=== PATIENT | male | born 2000 | race Asian ===

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

== ENCOUNTER 2020-01-21 08:37 | Inpatient (IN) | payer OTHER ==
[2020-01-21] MEDS ORDERED: METOCLOPRAMIDE HCL INJECTION 10 MG/2 ML VIAL IVPB ONE (08:39)
[2020-01-21] MEDS ORDERED: ACETAMINOPHEN 1000 MG/100 ML VIAL (NON FORMULARY) IVPB ONE (08:39)
[2020-01-21] MEDS ORDERED: FAMOTIDINE 20 MG/50 ML IVPB 20 MG/50 ML MG IVPB ONE ×2 (08:39→10:00)
[2020-01-21] MEDS ORDERED: SODIUM CHLORIDE 1,000 ML IV STA (08:39)
--- NOTE | 2020-01-21 08:45 | PDOC ---
Rapid Medical Evaluation Chief Complaint: Pain Time Seen by Provider: 01/21/20 08:39 Medical Evaluation: Allergies Allergy/AdvReac Type Severity Reaction Status Date / Time brompheniramine AdvReac Verified 01/21/20 08:39 [From Dimetapp Cold-Allergy (PE)] phenylephrine AdvReac Verified 01/21/20 08:39 [From Dimetapp Cold-Allergy (PE)] 01/21/20 08:41 I have performed a brief in-person evaluation of this patient. The patient presents with a chief complaint of:epigastric and periumbilical pain since yesterday which patient describes as burning pain. report nausea but denies vomiting. Denies fever, chills, diarrhea, constipation. Denies urinary symptoms. Denies recent travel Pertinent physical exam findings: moderate TTP to periumbical area with mild guarding. no rebound. neg billy sign I have ordered the following: CBC, CMP, UA, Ucx, lipase, IVF. pepcid, Tylenol The patient will proceed to the ED for further evaluation. Discharge Disposition - Diagnosis Abdominal pain Qualifiers: Abdominal location: periumbilical Qualified Code(s): R10.33 - Periumbilical pain - Discharge Dispostion Condition at time of disposition: Stable - Referrals - Patient Instructions - Post Discharge Activity
--- NOTE | 2020-01-21 08:59 | PDOC ---
History of Present Illness <Vivian Shen - Last Filed: 01/21/20 14:48> - General History Source: Patient Exam Limitations: No Limitations - History of Present Illness Initial Comments: 01/21/20 08:58 19 year old male with no pmhx presenting with RLQ abdominal pain x 1 day. Pt states that he noticed periumbicial abdominal pain last night that has now moved to his RLQ. Pt describes the pain and sharp and constant, not associated with food, vomiting or diarrhea. However pt states he is currently nauseous and has decreased appetitie. No fever, chills, sick contacts, recent travel, abnormal diet or ETOH. Pt otherwise denies: syncope, lightheadedness, dizziness, headaches, neck pain, chest pain, shortness of breath, palpitations, back pain, vomiting, diarrhea, constipation. Last meal: Midnight today. 01/21/20 09:05 <Al Gonzalez - Last Filed: 01/21/20 17:21> - General Chief Complaint: Pain Stated Complaint: ABD PAIN Time Seen by Provider: 01/21/20 08:39 Past History <Vivian Shen - Last Filed: 01/21/20 14:48> - Medical History CVA: No COPD: No - Psycho-Social/Smoking History Smoking History: Never smoked Information on smoking cessation initiated: No - Substance Abuse Hx (Audit-C & DAST Scrn) How often the patient has a drink containing alcohol: Never Score: In Men: 4 or > Positive; In Women: 3 or > Positive: 0 Screen Result (Pos requires Nsg. Audit-10AR): Negative <Al Gonzalez - Last Filed: 01/21/20 17:21> - Medical History Allergies/Adverse Reactions: Allergies Allergy/AdvReac Type Severity Reaction Status Date / Time brompheniramine AdvReac Verified 01/21/20 08:39 [From Dimetapp Cold-Allergy (PE)] phenylephrine AdvReac Verified 01/21/20 08:39 [From Dimetapp Cold-Allergy (PE)] Home Medications: Ambulatory Orders NK [No Known Home Medication] 01/21/20 Review of Systems - Review of Systems Constitutional: No: Chills, Fever HEENTM: No: Throat Pain Respiratory: No: Shortness of Breath Cardiac (ROS): No: Chest Pain ABD/GI: Yes: Symptoms Reported (RLQ pain), Nausea, Poor Appetite. No: Diarrhea, Difficulty Swallowing, Vomiting, Abdominal cramping : No: Dysuria, Discharge Musculoskeletal: No: Back Pain Integumentary: No: Bruising, Change in Color, Erythema, Rash Neurological: No: Headache, Numbness, Paresthesia, Tremors Endocrine: No: Excessive Sweating, Intolerance to Cold, Intolerance to Heat, Increased Hunger <CarlosAl - Last Filed: 01/21/20 17:21> *Physical Exam - Vital Signs Last Vital Signs Temp Pulse Resp BP Pulse Ox 98.1 F 82 16 115/56 L 96 01/21/20 08:39 01/21/20 08:39 01/21/20 08:39 01/21/20 08:39 01/21/20 08:39 <Vivian Shen - Last Filed: 01/21/20 14:48> - Vital Signs Last Vital Signs Temp Pulse Resp BP Pulse Ox 98.1 F 82 16 115/56 L 96 01/21/20 08:39 01/21/20 08:39 01/21/20 08:39 01/21/20 08:39 01/21/20 08:39 - Physical Exam 01/21/20 09:08 Gen: AAOx 3, no acute distress, comfortable, no signs of respiratory distress HENT: atraumatic, normocephalic with no laceration or contusion. Nasal mucosa without erythema. Oropharynx without erythema or exudates. Mucous membranes moist. EYES: PERRL, EOM intact, conjunctiva pink NECK: supple; trachea midline; no JVD, no lymphadenopathy, or thyromegaly CV: RRR no murmurs, gallops, or rubs. CHEST: CTA b/l no wheezing, rales or rhonchi ABD: +BS/ND. TTP in RLQ with voluntary guarding, +psoas sing; rest of abdomen soft, no rebound, no guarding EXTREMITY: no cyanosis or erythema. 2+ dorsalis pedis, posterior tibial, and radial pulse. No pedal edema; no calf swelling or tenderness SKIN: no rash, warm and dry, no diaphoresis HEME: no purpura or ecchymosis NEURO: normal speech, CN II-XII intact, sensation intact, normal gait, no cerebellar deficits MS: 5/5 strength in all extremities, FROM intact in all extremities. <Al Gonzalez - Last Filed: 01/21/20 17:21> ED Treatment Course - LABORATORY CBC & Chemistry Diagram: 01/21/20 09:50 01/21/20 09:50 - ADDITIONAL ORDERS Additional order review: Laboratory Results 01/21/20 09:50 Sodium 138 Potassium 3.9 Chloride 104 Carbon Dioxide 26 Anion Gap 9 BUN 10.9 Creatinine 0.9 Est GFR (CKD-EPI)AfAm 143.00 Est GFR (CKD-EPI)NonAf 123.38 Random Glucose 134 H Calcium 9.6 Total Bilirubin 0.6 AST 17 ALT 39 Alkaline Phosphatase 114 Total Protein 8.2 Albumin 4.4 Lipase 48 L 01/21/20 09:50 RBC 5.23 MCV 82.6 MCHC 33.2 RDW 12.6 MPV 10.4 Neutrophils % 89.3 H D Lymphocytes % 5.9 L D Monocytes % 4.5 Eosinophils % 0.0 D Basophils % 0.3 - Medications Given in the ED: ED Medications Discontinued Medications Generic Name Dose Route Start Last Admin Trade Name Micah PRN Reason Stop Dose Admin Acetaminophen 1,000 mg 01/21/20 08:39 01/21/20 10:08 Ofirmev Injection - IVPB 01/21/20 08:40 1,000 mg ONCE ONE Administration Famotidine/Sodium Chloride 20 mg in 50 mls @ 100 mls/hr 01/21/20 08:39 01/21/20 10:08 Pepcid 20 Mg Premixed Ivpb - IVPB 01/21/20 09:08 100 mls/hr ONCE ONE Administration Sodium Chloride 1,000 mls @ 1,000 mls/hr 01/21/20 08:39 01/21/20 10:07 Normal Saline - IV 01/21/20 09:38 1,000 mls/hr ASDIR STA Administration Metoclopramide HCl 10 mg 01/21/20 08:39 01/21/20 10:08 Reglan Injection - IVPB 01/21/20 08:40 10 mg ONCE ONE Administration <Vivian Shen - Last Filed: 01/21/20 14:48> - LABORATORY CBC & Chemistry Diagram: 01/21/20 09:50 01/21/20 09:50 <Al Gonzalez - Last Filed: 01/21/20 17:21> Medical Decision Making - Medical Decision Making The patient was seen and evaluated in conjunction with midlevel provider under my direct supervision, ancillary studies were reviewed. I agree with the plan as outlined withSAMEERA Gonzalez. HPI, workup/dispo as outlined. VS reviewed, wnl Patient with right lower quadrant tenderness, labs and lites were reviewed, he does have leukocytosis 16.4K There is a high suspicion for appendicitis, CT abdomen pelvis ordered to rule out appendicitis, p.o. contrast given due to his thin habitus analgesia IVF reassess 01/21/20 12:16 ct with acute appendicitis iv ceftriaxone and flagyl for infection, uncomplicated. admitted to medicine for management, surg cs with Dr Gan. 01/21/20 14:48 <Vivian Shen - Last Filed: 01/21/20 14:48> - Medical Decision Making 01/21/20 09:09 18 year old male presenting with RLQ pain VSS Concern for appendicitis CBC, CMP, lipase, UA, UC IVF, tylenol, H2 hanna, Reglan Will reassess after meds and labs Laboratory Tests 01/21/20 09:50 WBC 16.4 H Hgb 14.3 Hct 43.2 Neutrophils % 89.3 H D Labs significant for increased WBC. Rest of labs noncontributory. Pt pending CT with IV and PO contrast. COVID testing, T&S ordered anticipate admission for appendicitis. CT shows appendicitis. Surgeon real estate transaction manager contacted, pt admitted to medicine and given dose IV ceftriaxone and flagy as well as made NPO. Dr Raza of medicine and Dr Gan of surgery to manage further care 01/21/20 13:28 01/21/20 17:21 <Al Gonzalez - Last Filed: 01/21/20 17:21> Discharge <Vivian Shen - Last Filed: 01/21/20 14:48> - Discharge Information Problems reviewed: Yes - Admission Yes <Al Gonzalez - Last Filed: 01/21/20 17:21> - Discharge Information Clinical Impression/Diagnosis: Abdominal pain Qualifiers: Abdominal location: periumbilical Qualified Code(s): R10.33 - Periumbilical pain Condition: Stable
[2020-01-21 09:20] VITALS: BMI 27.8
[2020-01-21] MEDS ORDERED: ACETAMINOPHEN INJECTION 100 ML IVPB ONE (10:00)
[2020-01-21] MEDS ORDERED: METOCLOPRAMIDE HCL INJECTION 10 MG/2 ML VIAL ONE (10:00)
[2020-01-21 10:12] LABS: BASO % 0.3 % (0-2.0); HEMATOCRIT 43.2 % (35.4-49); HEMOGLOBIN 14.3 GM/dL (11.7-16.9); LYMPH % 5.9 % (8-40); MCH 27.4 pg (25.7-33.7); MCHC 33.2 g/dl (32.0-35.9); MEAN CELL VOLUME 82.6 fl (80-96); MEAN PLT VOLUME 10.4 fl (7.5-11.1); MONO % 4.5 % (3.8-10.2); NEUT % 89.3 % (42.8-82.8); PLATELET COUNT 186 K/MM3 (134-434); RBC 5.23 M/mm3 (4.00-5.60); RDW 12.6 % (11.9-15.9); WHITE BLOOD COUNT 16.4 K/mm3 (4.0-10.0)
[2020-01-21 10:38] LABS: ALBUMIN 4.4 g/dl (3.4-5.0); BILIRUBIN,TOTAL 0.6 mg/dL (0.2-1); BLOOD UREA NITROGEN 10.9 mg/dL (7-18); CALCIUM 9.6 mg/dL (8.5-10.1); CREATININE 0.9 mg/dL (0.55-1.3); POTASSIUM 3.9 mmol/L (3.5-5.1); TOT PROT 8.2 g/dl (6.4-8.2)
[2020-01-21] MEDS ORDERED: PIPERACILLIN/TAZOB 3.375 GM 3.375 GM in DEXTROSE 5%-WATER - 50 ML IVPB ONE (12:49)
[2020-01-21] MEDS ORDERED: CEFTRIAXONE 1,000 MG in DEXTROSE 5%-WATER - 50 ML IVPB ONE (13:58)
[2020-01-21] MEDS ORDERED: ONDANSETRON 4 MG/2 ML VIAL IVPUSH PRN (14:10)
[2020-01-21] MEDS ORDERED: ACETAMINOPHEN 1000 MG/100 ML VIAL (NON FORMULARY) IVPB PRN (14:12)
--- NOTE | 2020-01-21 14:24 | HP ---
CHIEF COMPLAINT: abdominal pain PCP: HISTORY OF PRESENT ILLNESS:19 yo M w/pmh of hypospadias (sx repair at 1y/o & 5y/o) was brought in by mother for concern of abdominal pain. He described his pain as an 8/10 around the periumbilical region. The pain with nausea started around midnight and remained constant until coming to the hospital. He denies, vomiting, diarrhea, fever and chills. No history of similar abdominal pain. Never had abdominal surgery before. No hx of bleeding disorders in family. Had been social distancing, but last Tuesday wore a mask and went to a BBQ with his friends. Denies known COVID contacts. ER course was notable for: (1) Tmax 103F, HR 121, WBC 16.4(neutrophil 89%) (2) CXR: "bibasilar infiltrates" (3) CT A/P: distended appendix(1cm diameter), associated mild concentric wall thickening, intraluminal appendicoliths. No definite soft tissue stranding (4) jennifer, coleman, elis, NS x1L, ofirmev, zosyn Recent Travel: denies PAST MEDICAL HISTORY: denies PAST SURGICAL HISTORY: hypospadias (sx repair at 1y/o & 5y/o) Social History: Smoking:denies Alcohol:denies Drugs: denies Allergies brompheniramine [From Dimetapp Cold-Allergy (PE)] Adverse Reaction (Verified 01/21/20 08:39) phenylephrine [From Dimetapp Cold-Allergy (PE)] Adverse Reaction (Verified 01/21/20 08:39) HOME MEDICATIONS: Home Medications Medication Instructions Recorded Oseltamivir Phosphate [Tamiflu -] 75 mg PO BID #9 capsule 08/22/17 REVIEW OF SYSTEMS CONSTITUTIONAL: Absent: fever, chills, diaphoresis, generalized weakness, malaise, loss of appetite, weight change HEENT: Absent: rhinorrhea, nasal congestion, throat pain, throat swelling, difficulty swallowing, mouth swelling, ear pain, eye pain, visual changes CARDIOVASCULAR: Absent: chest pain, syncope, palpitations, irregular heart rate, lightheadedness, peripheral edema RESPIRATORY: Absent: cough, shortness of breath, dyspnea with exertion, orthopnea, wheezing, stridor, hemoptysis GASTROINTESTINAL: Positive for abdominal pain and nausea Absent: , abdominal distension, vomiting, diarrhea, constipation, melena, hematochezia GENITOURINARY: Absent: dysuria, frequency, urgency, hesitancy, hematuria, flank pain, genital pain MUSCULOSKELETAL: Absent: myalgia, arthralgia, joint swelling, back pain, neck pain SKIN: Absent: rash, itching, pallor HEMATOLOGIC/IMMUNOLOGIC: Absent: easy bleeding, easy bruising, lymphadenopathy, frequent infections ENDOCRINE: Absent: unexplained weight gain, unexplained weight loss, heat intolerance, cold intolerance NEUROLOGIC: Absent: headache, focal weakness or paresthesias, dizziness, unsteady gait, seizure, mental status changes, bladder or bowel incontinence PSYCHIATRIC: Absent: anxiety, depression, suicidal or homicidal ideation, hallucinations. PHYSICAL EXAMINATION GENERAL: NAD. Calm-appearing HEAD: NC/AT. EYES: sclera anicteric, conjunctiva clear. EARS, NOSE, THROAT: oropharynx without exudates. Moist mucous membranes. NECK: Normal range of motion, supple without lymphadenopathy, JVD, or masses. LUNGS: Breath sounds equal, clear to auscultation bilaterally. No wheezes, and no crackles. No accessory muscle use. HEART: Regular rate and rhythm, normal S1 and S2 without murmur, rub or gallop. ABDOMEN: Soft. Tenderness to palpation of McBurney's point. Neg rebound, neg Rovsing's, neg Obturator sign. MUSCULOSKELETAL: No bony deformities or tenderness. NEUROLOGICAL: A&Ox3. Normal speech. Vital Signs - 24 hr 01/21/20 08:39 Temperature 98.1 F Pulse Rate 82 Respiratory 16 Rate Blood Pressure 115/56 L O2 Sat by Pulse 96 Oximetry (%) . Laboratory Results - last 24 hr 01/21/20 01/21/20 09:50 09:50 WBC 16.4 H RBC 5.23 Hgb 14.3 Hct 43.2 MCV 82.6 MCH 27.4 MCHC 33.2 RDW 12.6 Plt Count 186 MPV 10.4 Absolute Neuts (auto) 14.7 H Neutrophils % 89.3 H D Lymphocytes % 5.9 L D Monocytes % 4.5 Eosinophils % 0.0 D Basophils % 0.3 Nucleated RBC % 0 Sodium 138 Potassium 3.9 Chloride 104 Carbon Dioxide 26 Anion Gap 9 BUN 10.9 Creatinine 0.9 Est GFR (CKD-EPI)AfAm 143.00 Est GFR (CKD-EPI)NonAf 123.38 Random Glucose 134 H Calcium 9.6 Total Bilirubin 0.6 AST 17 ALT 39 Alkaline Phosphatase 114 Total Protein 8.2 Albumin 4.4 Lipase 48 L ASSESSMENT/PLAN: 9M w/ pmh of hypospadias(sx repair at 1y/o, 5y/o) brought in by mother for concern of periumbilical abdominal pain w/a nausea. Patient presented septic(Tmax 103F, HR 121, WBC 16.4) with CT showing a dilated appendix. Admitted for possible early appendicitis. Periumbilical abd pain --possibly 2/2 earlier appendicitis Sepsis --likely 2/2 appendicitis - Tmax 103F, HR 121, WBC 16.4(neutrophil 89%) - CT A/P: distended appendix (1cm diameter), associated mild concentric wall thickening, intraluminal appendicoliths. No definite soft tissue stranding - IVF - NPO - zofran PRN - abx regimen: zosyn d1 - surgical consult (Lazaro): recs pending planning to see pt and maybe OR pending neg COVID R/o COVID --pt is w/o respiratory symptoms - CXR: "bibasilar infiltrates" - fu COVID FEN - NPO - D5NS @100 DVT PPX - SQH Visit type - Emergency Visit Emergency Visit: Yes ED Registration Date: 01/21/20 Care time: The patient presented to the Emergency Department on the above date and was hospitalized for further evaluation of their emergent condition. - New Patient This patient is new to me today: Yes Date on this admission: 01/21/20 - Critical Care Critical Care patient: No ATTENDING PHYSICIAN STATEMENT I saw and evaluated the patient. I reviewed the resident's note and discussed the case with the resident. I agree with the resident's findings and plan as documented. SUBJECTIVE: OBJECTIVE: ASSESSMENT AND PLAN:
--- NOTE | 2020-01-21 14:54 | HP ---
CHIEF COMPLAINT: mid-abd pain w/a nausea PCP: Jojo HISTORY OF PRESENT ILLNESS: 19M w/ pmh of hypospadias(sx repair at 1y/o, 5y/o) brought in by mother for concern of abdominal pain. Had 8 of 10 intensity, points at periumbilical region, w/a nausea starting at at ~11pm on 01/20/20. Went to bed, but no impro vement in AM. Mother was concerned due to lack of improvement. Pt has nausea. Denies loss of appetite, vomiting, diarrhea, fever, chills. No h/o similiar abd pain. Never had abd surgery before. No hx of bleeding disorders in family. Had been social distancing, but last Tuesday wore a mask to get food with friends. Denies SOB, fever, or known COVID contacts. ER course was notable for: (1) Tmax 103F, HR 121, WBC 16.4(neutrophil 89%) (2) CXR: "bibasilar infiltrates" (3) CT A/P: distended appendix(1cm diameter), associated mild concentric wall thickening, intraluminal appendicoliths. No definite soft tissue stranding (4) zofran, relgan, pepcid, NS x1L, ofirmev, zosyn Recent Travel: PAST MEDICAL HISTORY: as above PAST SURGICAL HISTORY: hypospadias Social History: Smoking: denies Alcohol: denies Drugs: denies Allergies brompheniramine [From Dimetapp Cold-Allergy (PE)] Adverse Reaction (Verified 01/21/20 08:39) phenylephrine [From Dimetapp Cold-Allergy (PE)] Adverse Reaction (Verified 01/21/20 08:39) HOME MEDICATIONS: Home Medications Medication Instructions Recorded Oseltamivir Phosphate [Tamiflu -] 75 mg PO BID #9 capsule 08/22/17 REVIEW OF SYSTEMS CONSTITUTIONAL: Absent: fever, chills, diaphoresis, generalized weakness, malaise, loss of appetite, weight change HEENT: Absent: rhinorrhea, nasal congestion, throat pain, throat swelling, difficulty swallowing, mouth swelling, ear pain, eye pain, visual changes CARDIOVASCULAR: Absent: chest pain, syncope, palpitations, irregular heart rate, lightheadedness, peripheral edema RESPIRATORY: Absent: cough, shortness of breath, dyspnea with exertion, orthopnea, wheezing, stridor, hemoptysis GASTROINTESTINAL: abd pain, nausea Absent: abdominal distension, vomiting, diarrhea, constipation, melena, hematoch ezia GENITOURINARY: Absent: dysuria, frequency, urgency, hesitancy, hematuria, flank pain, genital pain MUSCULOSKELETAL: Absent: myalgia, arthralgia, joint swelling, back pain, neck pain SKIN: Absent: rash, itching, pallor HEMATOLOGIC/IMMUNOLOGIC: Absent: easy bleeding, easy bruising, lymphadenopathy, frequent infections ENDOCRINE: Absent: unexplained weight gain, unexplained weight loss, heat intolerance, cold intolerance NEUROLOGIC: Absent: headache, focal weakness or paresthesias, dizziness, unsteady gait, seizure, mental status changes, bladder or bowel incontinence PSYCHIATRIC: Absent: anxiety, depression, suicidal or homicidal ideation, hallucinations. PHYSICAL EXAMINATION Vital Signs - 24 hr 01/21/20 08:39 Temperature 98.1 F Pulse Rate 82 Respiratory 16 Rate Blood Pressure 115/56 L O2 Sat by Pulse 96 Oximetry (%) GENERAL: NAD. Calm-appearing HEAD: NC/AT. EYES: sclera anicteric, conjunctiva clear. EARS, NOSE, THROAT: oropharynx without exudates. Moist mucous membranes. NECK: Normal range of motion, supple without lymphadenopathy, JVD, or masses. LUNGS: Breath sounds equal, clear to auscultation bilaterally. No wheezes, and no crackles. No accessory muscle use. HEART: Regular rate and rhythm, normal S1 and S2 without murmur, rub or gallop. ABDOMEN: Soft. Tenderness to palpation of McBurney's point. Neg rebound, neg Rovsing's, neg Psoas Sign, neg Obturator sign. MUSCULOSKELETAL: No bony deformities or tenderness. NEUROLOGICAL: A&Ox3. Normal speech. Laboratory Results - last 24 hr 01/21/20 01/21/20 09:50 09:50 WBC 16.4 H RBC 5.23 Hgb 14.3 Hct 43.2 MCV 82.6 MCH 27.4 MCHC 33.2 RDW 12.6 Plt Count 186 MPV 10.4 Absolute Neuts (auto) 14.7 H Neutrophils % 89.3 H D Lymphocytes % 5.9 L D Monocytes % 4.5 Eosinophils % 0.0 D Basophils % 0.3 Nucleated RBC % 0 Sodium 138 Potassium 3.9 Chloride 104 Carbon Dioxide 26 Anion Gap 9 BUN 10.9 Creatinine 0.9 Est GFR (CKD-EPI)AfAm 143.00 Est GFR (CKD-EPI)NonAf 123.38 Random Glucose 134 H Calcium 9.6 Total Bilirubin 0.6 AST 17 ALT 39 Alkaline Phosphatase 114 Total Protein 8.2 Albumin 4.4 Lipase 48 L ASSESSMENT/PLAN: 19M w/ pmh of hypospadias(sx repair at 1y/o, 5y/o) brought in by mother for concern of periumbilical abdominal pain w/a nausea. Patient presented septic(Tmax 103F, HR 121, WBC 16.4) with CT showing a dilated appendix. Admitted for possible early appendicitis. #periumbilical abd pain --possibly 2/2 earlier appendicitis #sepsis --likely 2/2 appendicitis > Tmax 103F, HR 121, WBC 16.4(neutrophil 89%) > CT A/P: distended appendix(1cm diameter), associated mild concentric wall thickening, intraluminal appendicoliths. No definite soft tissue stranding - mIVF - NPO - zofran PRN - abx regimen: --zosyn d1 - surgical consult(Lazaro): --recs pending --planning to see pt and maybe OR pending neg COVID #r/o COVID --pt is w/o respiratory symptoms > CXR: "bibasilar infiltrates" - fu COVID FEN - NPO - D5NS @100 DVT PPX - SQH Visit type - Emergency Visit Emergency Visit: Yes ED Registration Date: 01/21/20 Care time: The patient presented to the Emergency Department on the above date and was hospitalized for further evaluation of their emergent condition. - New Patient This patient is new to me today: Yes Date on this admission: 01/21/20 - Critical Care Critical Care patient: No ATTENDING PHYSICIAN STATEMENT I saw and evaluated the patient. I reviewed the resident's note and discussed the case with the resident. I agree with the resident's findings and plan as documented. SUBJECTIVE: OBJECTIVE: ASSESSMENT AND PLAN:
--- NOTE | 2020-01-21 15:12 | PN ---
Teaching Attending Note Name of Resident: Homero Millerung ATTENDING PHYSICIAN STATEMENT I saw and evaluated the patient. I reviewed the resident's note and discussed the case with the resident. I agree with the resident's findings and plan as documented. SUBJECTIVE: This is a 19 y/o M who presents with generalized abdominal pain and nausea x 1 day. Patient denies any history of similar symptoms in the past. In the Ed patient was noted to CT scan finding with 1cm fluid filled distention in the appendix. ROS otherwise negative. PMH/PSH/Allergies as per resident note OBJECTIVE: Vital Signs Period Temp Pulse Resp BP Sys/Campbell Pulse Ox Last 24 Hr 98.1 F 82 16 115/56 96 GENERAL: Awake, alert, and fully oriented, in no acute distress. HEAD: Normal with no signs of trauma. EYES: Pupils equal, round and reactive to light, extraocular movements intact, sclera anicteric, conjunctiva clear. No lid lag. EARS, NOSE, THROAT: Ears normal, nares patent, oropharynx clear without exudates. Moist mucous membranes. NECK: Normal range of motion, supple without lymphadenopathy, JVD, or masses. LUNGS: Breath sounds equal, clear to auscultation bilaterally. No wheezes, and no crackles. No accessory muscle use. HEART: Regular rate and rhythm, normal S1 and S2 without murmur, rub or gallop. ABDOMEN: Tender to deep palpation in RLQ MUSCULOSKELETAL: Normal range of motion at all joints. No bony deformities or tenderness. No CVA tenderness. UPPER EXTREMITIES: 2+ pulses, warm, well-perfused. No cyanosis. No clubbing. Cap refill <2 seconds. No peripheral edema. LOWER EXTREMITIES: 2+ pulses, warm, well-perfused. No calf tenderness. No peripheral edema. NEUROLOGICAL: Cranial nerves II-XII intact. Normal speech. Normal gait. PSYCHIATRIC: Cooperative. Good eye contact. Appropriate mood and affect. SKIN: Warm, dry, normal turgor, no rashes or lesions noted. Labs, imaging reviewed. ASSESSMENT AND PLAN: 19 y/o M who presents with acute appendicitis -Admit to medicine Surgery consultation for appendectomy vs. IR drainage vs Medical management Defer to Surgery recs at this time Keep NPO at this time Supportive treatment with Zofran, Tylenol, IV Fluids Start IV Abx with Zosyn at this time Rest of plan as per resident note
[2020-01-21 15:15] LABS: INR 1.13 (0.83-1.09); PROTHROMBIN TIME (PATIENT) 13.3 SEC (9.7-13.0)
--- NOTE | 2020-01-21 15:17 | PN ---
Progress Note (short form) - Note Progress Note: surgery 19m admitted for appendicitis. covid status unknown. will plan for surgery if negative. if positive and medical management succeeding would avoid surgery due to risk of respiratory failure and thromboembolic events. will make recommendations once covid test available.
[2020-01-21 15:18] LABS: ACTIVATED PTT 36.2 SECONDS (25.2-36.5)
[2020-01-21] MEDS ORDERED: PIPERACILLIN/TAZOB 3.375 GM 3.375 GM/50 ML BAG IVPB ONE (15:24)
[2020-01-21] MEDS ORDERED: cefTRIAXone SODIUM 1 GM VIAL ONE (15:24)
[2020-01-21] MEDS: DEXTROSE 5%-NORMAL SALINE 1,000 ML IV SCH ×2 (15:27→23:13)
[2020-01-21] MEDS ORDERED: PIPERACILLIN/TAZOB 3.375 GM 3.375 GM in DEXTROSE 5%-WATER - 50 ML IVPB SCH (21:00)
[2020-01-21] MEDS: HEPARIN NA (PORCINE) 5,000 UNITS/ML 1ML VIAL SQ SCH (22:03)
[2020-01-21] MEDS: PIPERACILLIN/TAZOB 3.375 GM 3.375 GM in DEXTROSE 5%-WATER - 50 ML IVPB SCH (22:04)
--- NOTE | 2020-01-21 23:39 | EKG ---
Test Reason : Blood Pressure : / mmHG Vent. Rate : 060 BPM Atrial Rate : 060 BPM P-R Int : 124 ms QRS Dur : 086 ms QT Int : 368 ms P-R-T Axes : 036 076 061 degrees QTc Int : 368 ms NORMAL SINUS RHYTHM WITH SINUS ARRHYTHMIA NORMAL ECG NO PREVIOUS ECGS AVAILABLE Confirmed by MD MARIO, RADHA ([id number]) on 01/21/2020 11:38:26 PM Referred By: Confirmed By:RADHA MARTIN MD
[2020-01-22] MEDS: PIPERACILLIN/TAZOB 3.375 GM 3.375 GM in DEXTROSE 5%-WATER - 50 ML IVPB SCH ×3 (01:03→18:34)
[2020-01-22] MEDS: HEPARIN NA (PORCINE) 5,000 UNITS/ML 1ML VIAL SQ SCH ×2 (05:49→15:13)
[2020-01-22 06:46] LABS: BASO % 0.4 % (0-2.0); EOS % 1.9 % (0-4.5); HEMATOCRIT 37.2 % (35.4-49); HEMOGLOBIN 12.5 GM/dL (11.7-16.9); LYMPH % 35.1 % (8-40); MCH 27.6 pg (25.7-33.7); MCHC 33.5 g/dl (32.0-35.9); MEAN CELL VOLUME 82.3 fl (80-96); MEAN PLT VOLUME 9.9 fl (7.5-11.1); MONO % 7.5 % (3.8-10.2); NEUT % 55.1 % (42.8-82.8); PLATELET COUNT 152 K/MM3 (134-434); RBC 4.52 M/mm3 (4.00-5.60); RDW 12.9 % (11.9-15.9); WHITE BLOOD COUNT 8.3 K/mm3 (4.0-10.0)
[2020-01-22 07:13] LABS: POTASSIUM 3.3 mmol/L (3.5-5.1)
[2020-01-22 07:18] LABS: ALBUMIN 3.3 g/dl (3.4-5.0); BILIRUBIN,TOTAL 0.8 mg/dL (0.2-1); BLOOD UREA NITROGEN 5.8 mg/dL (7-18); CALCIUM 8.4 mg/dL (8.5-10.1); CREATININE 0.9 mg/dL (0.55-1.3); PHOSPHOROUS 3.8 mg/dL (2.5-4.9); TOT PROT 6.5 g/dl (6.4-8.2)
[2020-01-22 07:46] LABS: PH,URINE 6.5 (5.0-8.0); URINE APPEARANCE CLEAR; URINE BILIRUBIN NEGATIVE (NEGATIVE); URINE COLOR YELLOW; URINE GLUCOSE (UA) NEGATIVE (NEGATIVE); URINE KETONE NEGATIVE (NEGATIVE); URINE LEUK ESTERASE NEGATIVE (NEGATIVE); URINE NITRITE NEGATIVE (NEGATIVE); URINE PROTEIN NEGATIVE (NEGATIVE); URINE UROBILINOGEN 0.2 mg/dL (0.2-1.0)
[2020-01-22] MEDS: DEXTROSE 5%-NORMAL SALINE 1,000 ML IV SCH (08:50)
--- NOTE | 2020-01-22 08:55 | PN ---
Progress Note (short form) - Note Progress Note: surgery covid status still unavailable. wbc remains normal without fever. cont zosyn. awaiting covid results and available to operate.
[2020-01-22] MEDS: KCL 10 MEQ IVPB 10 MEQ/100 ML INFUS.BAG IVPB SCH ×2 (10:44→16:37)
[2020-01-22] MEDS ORDERED: fentaNYL CITRATE 250 MCG/5 ML VIAL ONE (12:58)
[2020-01-22] MEDS ORDERED: MIDAZOLAM HCL 2 MG/2 ML SINGLE DOSE VIAL ONE (12:59)
[2020-01-22] MEDS ORDERED: PROPOFOL 20 ML ONE (12:59)
[2020-01-22] MEDS ORDERED: ONDANSETRON 4 MG/2 ML VIAL IVPUSH PRN ×2 (13:12→15:04)
[2020-01-22] MEDS ORDERED: PROMETHAZINE HCL 25 MG/1 ML VIAL IVPB PRN (13:12)
--- NOTE | 2020-01-22 13:25 | CON.ID ---
Consult - Alcohol/Substance Use Hx Alcohol Use: No - Smoking History Smoking history: Never smoked Home Medications - Allergies Allergies/Adverse Reactions: Allergies Allergy/AdvReac Type Severity Reaction Status Date / Time brompheniramine AdvReac Verified 01/21/20 08:39 [From Dimetapp Cold-Allergy (PE)] phenylephrine AdvReac Verified 01/21/20 08:39 [From Dimetapp Cold-Allergy (PE)] - Home Medications Home Medications: Ambulatory Orders NK [No Known Home Medication] 01/21/20 Physical Exam Vital Signs: Vital Signs Temperature 97.9 F 01/22/20 09:20 Pulse Rate 71 01/22/20 09:20 Respiratory Rate 18 01/22/20 09:20 Blood Pressure 108/57 L 01/22/20 09:20 O2 Sat by Pulse Oximetry (%) 100 01/22/20 09:00 Labs: CBC, BMP 01/22/20 06:30 01/22/20 06:30
[2020-01-22] MEDS ORDERED: ACETAMINOPHEN 325 MG TABLET (FP) PO PRN (13:30)
[2020-01-22] MEDS ORDERED: morphine CARPU-JECT 10 MG/1 ML DISP.SYRIN IVPB PRN (13:30)
[2020-01-22] MEDS ORDERED: oxyCODONE HCL 5 MG TABLET PO PRN (13:30)
--- NOTE | 2020-01-22 13:33 | OP ---
Operative Note - Note: Operative Date: 01/22/20 Operation: acute appendicitis Findings: thickened, inflamed appendix, non perforated Post-Operative Diagnosis: Same as Pre-op Surgeon: Elver Gan Anesthesiologist/EMPLOYEE COUNSELOR: Mendez Laboy Anesthesia: General Specimens Removed: appendix Operative Report Dictated: Yes
[2020-01-22] MEDS ORDERED: morphine SULFATE 4 MG/ML VIAL IVPB PRN (13:46)
[2020-01-22] MEDS ORDERED: MORPHINE SULFATE 10 MG/1 ML *VIAL IVPB PRN (13:47)
--- NOTE | 2020-01-22 13:56 | CONS ---
DATE OF CONSULTATION: 01/22/2020 REASON FOR CONSULTATION: Acute appendicitis. REQUESTED BY: This is an emergency consultation requested by the emergency room physician. BRIEF HISTORY: This is a 19-year-old male without significant past medical history who presented to [facility] with signs and symptoms of acute appendicitis with CAT scan to confirm this. He was started on intravenous Zosyn antibiotic with good results. He was tested for COVID virus and while results were waiting to be done was treated medically. A request was made for surgical evaluation. PAST MEDICAL HISTORY: Significant for hypospadias as a child. PAST SURGICAL HISTORY: Includes repair of that problem. SOCIAL HISTORY: Negative for alcohol, negative for tobacco. ALLERGIES: He has allergies to DIMETAPP COLD MEDICINE. HOME MEDICATIONS: Include Tamiflu which he has not taken since 2018. FAMILY HISTORY: Noncontributory. REVIEW OF SYSTEMS: General: Denies fatigue or malaise. Cardiac: Denies chest pain or palpitations. Respiratory: Denies shortness of breath or wheeze. Gastrointestinal: Denies nausea. Denies vomiting. Denies diarrhea. Denies blood in his stool. Admits to abdominal pain around his umbilicus moving to his right lower quadrant. He states he is very hungry. Genitourinary: Denies dysuria. Musculoskeletal: Denies joint pain. Psychiatric: Denies anxiety, depression, hearing voices. PHYSICAL EXAMINATION: General: This is a well-developed, well-nourished 19-year-old male in no distress. Vital Signs: He is afebrile, has been since admission. HEENT: His head is normocephalic. His sclerae are anicteric. Neck: Supple. Chest: Clear. Abdomen: Soft. He has localized right lower quadrant pain with tenderness and rebound. He has no guarding. Extremities: No edema. LABORATORY: On review of his laboratory, on arrival it was 16,000 his white blood cell count and now it is normal at 8.3. His shift has now gone. His chemistries are unremarkable. His COVID test is negative which came back earlier today. IMAGING: On review of his imaging, he has a CAT scan of his abdomen and pelvis which is consistent with acute appendicitis. The radiologist thought it could be subacute or chronic as well. It is noted to be 1 cm in diameter, fluid filled with thickening and appendicolith noted. ASSESSMENT: This is a 19-year-old male with abdominal pain, initial leukocytosis, CAT scan evidence of a dilated thickened appendix. Clinically this is acute appendicitis. I agree with admission. I agree with Zosyn antibiotic. Now that the patient has been tested negative for COVID, I would recommend proceeding with appendectomy. Patient also has been given the option of continuing with medical management, which appears to be succeeding. Risks and benefits of surgery have been explained to the patient in detail. These include but are not limited to the possibility of conversion to open, possible injury to viscera or bladder, the possibility of blood loss requiring blood transfusion, possibility of staple line dehiscence, the possibility of future obstruction, possibility of future hernia, plus multiple medical risks including but not limited to cardiac, neurologic, pulmonary and vascular complications and even . The patient also understands that he has been tested negative for COVID, but if that is a false-negative test that he would then have increased risk of thromboembolic events as well as respiratory failure. He has also been offered medical management of appendicitis and declines. He prefers the more definitive nature of surgery, likely decreased length of stay and the ability to pathologically evaluate the appendix. I had a long conversation with his mother as well who is in the waiting area of the intensive care unit outside of the operating theater. DO ROBINA MAXWELL/[id number]
[2020-01-22] MEDS ORDERED: NEOSTIGMINE METHYLSULFATE 0.5 MG/ML - 10 ML MDV ONE (14:20)
[2020-01-22] MEDS ORDERED: DEXTROSE 5%-NORMAL SALINE 1,000 ML IV SCH (15:04)
--- NOTE | 2020-01-22 17:19 | PN ---
Teaching Attending Note Name of Resident: Reed Townsend ATTENDING PHYSICIAN STATEMENT I saw and evaluated the patient. I reviewed the resident's note and discussed the case with the resident. I agree with the resident's findings and plan as documented. SUBJECTIVE: Feels better, RLQ abdo pain now 2/10 in severity. No fever/chills. Nausea resolved. No vomiting/diarrhea. OBJECTIVE: Afebrile, Hemodynamically Stable. Last Vital Signs Temp Pulse Resp BP Pulse Ox 98 F 70 14 111/58 L 100 01/22/20 15:50 01/22/20 15:50 01/22/20 15:50 01/22/20 15:50 01/22/20 15:50 HEENT - Atraumatic, Normocephalic. Heart - S1, S2, RRR Lungs - clear to auscultation Abdomen - Soft, RLQ tender. No guarding/rebound. Extremities - no edema, no calf tenderness. Neuro - AAO x 3. Tone/Power normal all extremities. Laboratory Results - last 24 hr 01/21/20 01/21/20 01/22/20 06:20 14:45 06:30 WBC 8.3 RBC 4.52 Hgb 12.5 Hct 37.2 MCV 82.3 MCH 27.6 MCHC 33.5 RDW 12.9 Plt Count 152 MPV 9.9 Absolute Neuts (auto) 4.6 Neutrophils % 55.1 D Lymphocytes % 35.1 D Monocytes % 7.5 Eosinophils % 1.9 D Basophils % 0.4 Sodium Potassium Chloride Carbon Dioxide Anion Gap BUN Creatinine Est GFR (CKD-EPI)AfAm Est GFR (CKD-EPI)NonAf Random Glucose Calcium Phosphorus Magnesium Total Bilirubin AST ALT Alkaline Phosphatase Total Protein Albumin Urine Color Yellow Urine Appearance Clear Urine pH 6.5 Ur Specific [place] 1.021 Urine Protein Negative Urine Glucose (UA) Negative Urine Ketones Negative Urine Blood Negative Urine Nitrite Negative Urine Bilirubin Negative Urine Urobilinogen 0.2 Ur Leukocyte Esterase Negative COVID-19 (DARINEL) Not detected 01/22/20 06:30 WBC RBC Hgb Hct MCV MCH MCHC RDW Plt Count MPV Absolute Neuts (auto) Neutrophils % Lymphocytes % Monocytes % Eosinophils % Basophils % Sodium 141 Potassium 3.3 L Chloride 109 H Carbon Dioxide 29 Anion Gap 4 L BUN 5.8 L Creatinine 0.9 Est GFR (CKD-EPI)AfAm 143.00 Est GFR (CKD-EPI)NonAf 123.38 Random Glucose 100 Calcium 8.4 L Phosphorus 3.8 Magnesium 2.0 Total Bilirubin 0.8 AST 13 L ALT 27 Alkaline Phosphatase 91 Total Protein 6.5 Albumin 3.3 L Urine Color Urine Appearance Urine pH Ur Specific [place] Urine Protein Urine Glucose (UA) Urine Ketones Urine Blood Urine Nitrite Urine Bilirubin Urine Urobilinogen Ur Leukocyte Esterase COVID-19 (DARINEL) Current Medications Generic Name Dose Route Start Last Admin Trade Name Freq PRN Reason Stop Dose Admin Acetaminophen 650 mg 01/22/20 13:30 Tylenol - PO Q4H PRN FEVER Enoxaparin Sodium 40 mg 01/23/20 10:00 Lovenox - SQ DAILY MARCELINO Famotidine/Sodium Chloride 20 mg in 50 mls @ 100 mls/hr 01/22/20 22:00 Pepcid 20 Mg Premixed Ivpb - IVPB BID MARCELINO Piperacillin Sod/Tazobactam 50 mls @ 100 mls/hr 01/22/20 18:00 Sod 3.375 gm/ Dextrose IVPB Q8H-IV MARCELINO Protocol Dextrose/Sodium Chloride 1,000 mls @ 100 mls/hr 01/22/20 15:04 01/22/20 16:35 D5-Ns - IV 100 mls/hr ASDIR MARCELINO Administration Piperacillin Sod/Tazobactam 50 mls @ 100 mls/hr 01/22/20 18:00 Sod 3.375 gm/ Dextrose IVPB 01/23/20 17:59 Q8H-IV MARCELINO Protocol Morphine Sulfate 8 mg 01/22/20 13:47 Morphine Injection - IVPB Q3H PRN PAIN LEVEL 7 - 10 Ondansetron HCl 4 mg 01/22/20 15:04 Zofran Injection IVPUSH Q6H PRN NAUSEA Oxycodone HCl 7.5 mg 01/22/20 13:30 Roxicodone - PO Q4H PRN PAIN LEVEL 4 - 6 Home Medications Medication Instructions Recorded NK [No Known Home Medication] 01/21/20 ASSESSMENT AND PLAN: 19 year old with no significant PMH, presents with acute onset abdominal pain, found to have acute appendicitis. Sepsis secondary to Acute Appendicitis Sepsis resolving. Fever/leukocytosis resolved. NPO/IV Fluids/IV Zosyn Surgery planned for today. Medically optimized. Post-surgical DVT Px and Incentive Spirometry. Hypokalemia - repleted DVT Px - Lovenox SQ
[2020-01-22] MEDS ORDERED: PIPERACILLIN/TAZOB 3.375 GM 3.375 GM in DEXTROSE 5%-WATER - 50 ML IVPB SCH (18:00)
--- NOTE | 2020-01-22 19:18 | PN ---
Physical Exam: SUBJECTIVE: Patient seen and examined at bedside in the morning. The patient denies feeling nausea/vomiting, shortness of breath, or cough. He has not had a bowel movement in 2 days. He has 2/10 right lower quadrant pain. The patient flinches on pressure at the McBurney's Point. OBJECTIVE: Vital Signs Period Temp Pulse Resp BP Sys/Campbell Pulse Ox Last 24 Hr 97.9 F-98.6 F 63-90 14-20 106-116/46-75 98-100 GENERAL: The patient is awake, alert, and fully oriented, in no acute distress. HEAD: Normal with no signs of trauma. EYES: Extraocular movements intact. No ptosis. ENT: Ears normal, nares patent, oropharynx clear without exudates, moist mucous membranes. NECK: Trachea midline, full range of motion, supple. LUNGS: Breath sounds equal, clear to auscultation bilaterally, no wheezes, no crackles, no accessory muscle use. HEART: Regular rate and rhythm, S1, S2 without murmur, rub or gallop. ABDOMEN: Soft, tender to palpation of right lower quadrant. Nondistended, normoactive bowel sounds, no guarding, no rebound, no masses. Positive McBurney's point. EXTREMITIES: 2+ pulses, warm, well-perfused, no edema. NEUROLOGICAL: Normal speech, gait not observed. PSYCH: Normal mood, normal affect. SKIN: Warm, dry, normal turgor, no rashes or lesions noted Laboratory Results - last 24 hr 01/21/20 01/21/20 01/22/20 06:20 14:45 06:30 WBC 8.3 RBC 4.52 Hgb 12.5 Hct 37.2 MCV 82.3 MCH 27.6 MCHC 33.5 RDW 12.9 Plt Count 152 MPV 9.9 Absolute Neuts (auto) 4.6 Neutrophils % 55.1 D Lymphocytes % 35.1 D Monocytes % 7.5 Eosinophils % 1.9 D Basophils % 0.4 Sodium Potassium Chloride Carbon Dioxide Anion Gap BUN Creatinine Est GFR (CKD-EPI)AfAm Est GFR (CKD-EPI)NonAf Random Glucose Calcium Phosphorus Magnesium Total Bilirubin AST ALT Alkaline Phosphatase Total Protein Albumin Urine Color Yellow Urine Appearance Clear Urine pH 6.5 Ur Specific [place] 1.021 Urine Protein Negative Urine Glucose (UA) Negative Urine Ketones Negative Urine Blood Negative Urine Nitrite Negative Urine Bilirubin Negative Urine Urobilinogen 0.2 Ur Leukocyte Esterase Negative COVID-19 (DARINEL) Not detected 01/22/20 06:30 WBC RBC Hgb Hct MCV MCH MCHC RDW Plt Count MPV Absolute Neuts (auto) Neutrophils % Lymphocytes % Monocytes % Eosinophils % Basophils % Sodium 141 Potassium 3.3 L Chloride 109 H Carbon Dioxide 29 Anion Gap 4 L BUN 5.8 L Creatinine 0.9 Est GFR (CKD-EPI)AfAm 143.00 Est GFR (CKD-EPI)NonAf 123.38 Random Glucose 100 Calcium 8.4 L Phosphorus 3.8 Magnesium 2.0 Total Bilirubin 0.8 AST 13 L ALT 27 Alkaline Phosphatase 91 Total Protein 6.5 Albumin 3.3 L Urine Color Urine Appearance Urine pH Ur Specific [place] Urine Protein Urine Glucose (UA) Urine Ketones Urine Blood Urine Nitrite Urine Bilirubin Urine Urobilinogen Ur Leukocyte Esterase COVID-19 (DARINEL) Active Medications Generic Name Dose Route Start Last Admin Trade Name Freq PRN Reason Stop Dose Admin Acetaminophen 650 mg 01/22/20 13:30 01/22/20 17:43 Tylenol - PO 650 mg Q4H PRN Administration FEVER Enoxaparin Sodium 40 mg 01/23/20 10:00 Lovenox - SQ DAILY MARCELINO Famotidine/Sodium Chloride 20 mg in 50 mls @ 100 mls/hr 01/22/20 22:00 Pepcid 20 Mg Premixed Ivpb - IVPB BID MARCELINO Piperacillin Sod/Tazobactam 50 mls @ 100 mls/hr 01/22/20 18:00 Sod 3.375 gm/ Dextrose IVPB Q8H-IV MARCELINO Protocol Dextrose/Sodium Chloride 1,000 mls @ 100 mls/hr 01/22/20 15:04 01/22/20 16:35 D5-Ns - IV 100 mls/hr ASDIR MARCELINO Administration Piperacillin Sod/Tazobactam 50 mls @ 100 mls/hr 01/22/20 18:00 01/22/20 18:34 Sod 3.375 gm/ Dextrose IVPB 01/23/20 17:59 100 mls/hr Q8H-IV MARCELINO Administration Protocol Morphine Sulfate 8 mg 01/22/20 13:47 Morphine Injection - IVPB Q3H PRN PAIN LEVEL 7 - 10 Ondansetron HCl 4 mg 01/22/20 15:04 Zofran Injection IVPUSH Q6H PRN NAUSEA Oxycodone HCl 7.5 mg 01/22/20 13:30 Roxicodone - PO Q4H PRN PAIN LEVEL 4 - 6 ASSESSMENT/PLAN: 19 year old male patient with no significant past medical history, who presented to the ED with 10/10 abdominal pain and nausea. 1. Appendicitis - The patent was waiting for his COVID status to be determined before surgery. The patient was found to be COVID negative in the morning, and underwent a laparoscopic appendectomy surgery in the afternoon - The patient is taking Pip/Tazo with a decrease in his WBC count to 8.3 from 16.4 yesterday DVT Px - Lovenox Dispo - Surgery was today. Monitoring vitals and labs. Visit type - Emergency Visit Emergency Visit: Yes ED Registration Date: 01/21/20 Care time: The patient presented to the Emergency Department on the above date and was hospitalized for further evaluation of their emergent condition. - New Patient This patient is new to me today: Yes Date on this admission: 01/22/20 - Critical Care Critical Care patient: No - Discharge Referral Referred to [facility] Med P.C.: No ATTENDING PHYSICIAN STATEMENT I saw and evaluated the patient. I reviewed the resident's note and discussed the case with the resident. I agree with the resident's findings and plan as documented. SUBJECTIVE: OBJECTIVE: ASSESSMENT AND PLAN:
[2020-01-22] MEDS ORDERED: KCL 10 MEQ IVPB 10 MEQ/100 ML INFUS.BAG IVPB SCH (21:00)
[2020-01-22] MEDS: FAMOTIDINE 20 MG/50 ML IVPB 20 MG/50 ML MG IVPB SCH (22:32)
--- NOTE | 2020-01-22 23:05 | OP ---
DATE OF OPERATION: 01/22/2020 PREOPERATIVE DIAGNOSIS: Acute appendicitis. POSTOPERATIVE DIAGNOSIS: Acute appendicitis. PROCEDURE: Laparoscopic appendectomy, lavage. SURGEON: Elver Gan DO ANESTHESIOLOGIST: Mendez Laboy MD (general) INTRAOPERATIVE FINDINGS: A thickened, inflamed nonperforated appendix. BLOOD LOSS: Minimal. SPECIMEN: Appendix. DISPOSITION: To recovery in stable condition. BRIEF HISTORY: This is a 19-year-old male who presented to [facility] with signs of appendicitis. He was started on intravenous antibiotics and awaited COVID testing. Once tested negative, he presents now for surgery. DESCRIPTION OF PROCEDURE: The patient was placed in the supine position. After general anesthesia was administered, the abdomen was prepped and draped in sterile fashion. A 10-Turkish Avalos was placed due to the patient's hypospadias surgery. Patient was already on Zosyn antibiotics. Next, a vertical incision is made infraumbilically with scalpel blade going through skin and subcutaneous tissue. The fascia was lifted with a Luís clamp and incised vertically, the peritoneum was entered bluntly. A 0 Vicryl stitch was placed across the fascial defect and used to secure the Héctor trocar. Pneumoperitoneum was then created, followed by insertion of a 5-mm, 30-degree laparoscope. Two 5-mm trocars were placed, 1 suprapubic, 1 in left lower quadrant. Attention was turned toward the right lower quadrant. The appendix was seen. It was thick and inflamed but not ruptured. A window was made of the space. The LigaSure was used to divide the mesoappendix in multiple welds. An Endo MURALI purple load 45-mm stapler was used to divide the appendix and its base, and when firing the staple line was inspected. It was intact with no bleeding, no breaks, no signs of ischemia. The appendix was placed in a specimen bag, removed through the infraumbilical trocar site, and sent to pathology marked as a specimen. A limited lavage was done, all return was clear. Some inflammatory fluid from the pelvis was suctioned. Trocars were removed under direct visualization. Pneumoperitoneum was released to the suction device. The fascia of the infraumbilical trocar site was closed with multiple interrupted 0 Vicryl sutures. The 3 skin incisions were closed with Biosyn. Dermabond dressing was placed. Overall, the patient tolerated procedure well. There were no complications. Blood loss was minimal. DO ROBINA MAXWELL/[id number] MTDD
[2020-01-23] MEDS: PIPERACILLIN/TAZOB 3.375 GM 3.375 GM in DEXTROSE 5%-WATER - 50 ML IVPB SCH ×2 (02:37→09:35)
[2020-01-23] MEDS ORDERED: POTASSIUM CHLORIDE TABS 20 MEQ TABLET.ER (FP) PO ONE (07:23)
[2020-01-23 08:23] LABS: HEMATOCRIT 38.7 % (35.4-49); MCH 27.9 pg (25.7-33.7); MCHC 33.5 g/dl (32.0-35.9); MEAN CELL VOLUME 83.3 fl (80-96); MEAN PLT VOLUME 10.4 fl (7.5-11.1); PLATELET COUNT 178 K/MM3 (134-434); RBC 4.65 M/mm3 (4.00-5.60); RDW 12.9 % (11.9-15.9); WHITE BLOOD COUNT 9.5 K/mm3 (4.0-10.0)
[2020-01-23] MEDS ORDERED: PIPERACILLIN/TAZOBACTAM 3.375 GM VIAL IVPB ONE (08:23)
[2020-01-23] MEDS ORDERED: DEXTROSE 5%-WATER - 50 ML IVPB ONE (08:24)
[2020-01-23 08:46] LABS: BLOOD UREA NITROGEN 7.3 mg/dL (7-18); CALCIUM 9.1 mg/dL (8.5-10.1); CREATININE 0.8 mg/dL (0.55-1.3); MAGNESIUM 2.2 mg/dL (1.8-2.4); PHOSPHOROUS 4.1 mg/dL (2.5-4.9); POTASSIUM 3.6 mmol/L (3.5-5.1)
[2020-01-23] MEDS ORDERED: KETOROLAC TROMETHAMINE 15 MG/ML VIAL IVPUSH ONE (08:58)
--- NOTE | 2020-01-23 09:00 | PN ---
Progress Note (short form) - Note Progress Note: Surgery note: Pt with abd pain this am 4 to 5 out of 10. Passing flatus. No bm. No nausea or emesis. PT complains of burning with urination which is improving Vital Signs Period Temp Pulse Resp BP Sys/Campbell Pulse Ox Last 24 Hr 97.9 F-98.9 F 63-90 14-20 102-119/46-75 98-100 GEN: A&0x3, NAD ABD; soft, non-distended, incisional tenderness. LE: no calf tenderness or swelling noted b/l. ANGELES/SCDs in place. A/P: 19 yo male s/p lap appy, POD#1 Thickened appendix/non-perforated. Continue diet as tolerated OOB and ambulate Avalos placed at time of surgery with 10 FR, most likely secondary to catheter placement. Spoke with the medical team and urine culture NGTD. D/w with Dr. Gan, and recommend 5 days of oral antibiotics
[2020-01-23] MEDS: FAMOTIDINE 20 MG/50 ML IVPB 20 MG/50 ML MG IVPB SCH (09:32)
[2020-01-23] MEDS ORDERED: ENOXAPARIN NA (PORCINE) 40 MG/0.4 ML DISP.SYRIN SQ SCH (10:00)
[2020-01-23 11:47] VITALS: TEMP 98.6
--- NOTE | 2020-01-23 14:03 | DS ---
Physical Exam: SUBJECTIVE: Patient seen and examined at bedside. The patient reports being able to pass gas. The patient is tolerating oral intake. The patient denies fever/chills, shortness of breath, and chest pain. OBJECTIVE: Vital Signs Period Temp Pulse Resp BP Sys/Campbell Pulse Ox Last 24 Hr 98 F-98.9 F 63-90 14-20 102-119/46-75 98-100 PHYSICAL EXAM GENERAL: The patient is awake, alert, and fully oriented, in no acute distress. HEAD: Normal with no signs of trauma. EYES: Extraocular movements intact. ENT: Ears normal, nares patent, oropharynx clear without exudates, moist mucous membranes. NECK: Trachea midline, full range of motion, supple. LUNGS: Breath sounds equal, clear to auscultation bilaterally, no wheezes, no crackles, no accessory muscle use. HEART: Regular rate and rhythm, S1, S2 without murmur, rub or gallop. ABDOMEN: Soft, nontender, nondistended, normoactive bowel sounds, no guarding, no rebound, no masses. EXTREMITIES: 2+ pulses, warm, well-perfused, no edema. NEUROLOGICAL: Normal speech, gait not observed. PSYCH: Normal mood, normal affect. SKIN: Warm, dry, normal turgor, no rashes or lesions noted. Surgical wound clean. LABS Laboratory Results - last 24 hr 01/23/20 01/23/20 06:00 08:03 WBC 9.5 RBC 4.65 Hgb 13.0 Hct 38.7 MCV 83.3 MCH 27.9 MCHC 33.5 RDW 12.9 Plt Count 178 MPV 10.4 Sodium 144 Potassium 3.6 Chloride 111 H Carbon Dioxide 25 Anion Gap 8 BUN 7.3 Creatinine 0.8 Est GFR (CKD-EPI)AfAm 150.09 Est GFR (CKD-EPI)NonAf 129.50 Random Glucose 114 H Calcium 9.1 Phosphorus 4.1 Magnesium 2.2 HOSPITAL COURSE: Date of Admission:01/21/20 19 year old male with no significant past medical history who presented to the ER with general abdominal pain that then localized to the right lower quadrant. The patient was found to have acute appendicitis. The patient was given IV fluids, Zosyn antibiotics, and medication until his COVID status came back negative. The patient was then brought to the ER for a laparoscopic appendectomy. The patient recovered post-operatively without complications and was discharged. Date of Discharge: 01/23/20 Minutes to complete discharge: 50 Discharge Summary Problems reviewed: Yes Reason For Visit: APPENDICITIS Condition: Good - Instructions Diet, Activity, Other Instructions: Dear MOHSEN MCKAY, Post Operative Instructions Physical activity Resume your normal everyday activity as tolerated no heavy lifting or exercise until seen by your surgeon. You may walk unlimited amounts of and climb stairs. You may resume driving the car when you feel safe and comfortable behind the wheel. Wound care If you have a bandage, leave it on, and keep dry for 48 - 72 hours. After that time discard the outer bandage. If there are tapes on the skin under the outer bandage, leave them in place. They will peel off in the next 7 to 10 days. Do Not peel them off. You may shower 2 days after surgery. If there are tapes present on the skin, they can get wet. Diet There are no dietary restrictions. Eat healthy, high-fiber foods. Drink 6 to 8 glasses of liquid each day. This will assist in keeping your bowels are regular. Pain management You may take Tylenol or acetaminophen or Ibuprofen (for example, Motrin, Advil etc.) Any pain prescription medication ordered should be taken as prescribed for moderate to severe pain. Call Dr. aGn for any of the following: Severe pain not relieved by medication Fever of 101 or higher Excessive bleeding or drainage on dressing Inability to urinate Call the office for a post operative appointment in 7 - 10 days. Referrals: Walter Uribe [Primary Care Provider] - 1 Week Elver Gan MD [Staff Physician] - 1 Week Disposition: HOME - Home Medications Comprehensive Discharge Medication List: Ambulatory Orders Amox-Tr/K Cl [Augmentin - 875Mg Tablet] 1 tab PO BID #10 tablet 01/23/20 This patient is new to me today: No Emergency Visit: Yes ED Registration Date: 01/21/20 Care time: The patient presented to the Emergency Department on the above date and was hospitalized for further evaluation of their emergent condition. Critical Care patient: No - Discharge Referral Referred to [facility] Med P.C.: No ATTENDING PHYSICIAN STATEMENT I saw and evaluated the patient. I reviewed the resident's note and discussed the case with the resident. I agree with the resident's findings and plan as documented. SUBJECTIVE: OBJECTIVE: ASSESSMENT AND PLAN:
[2020-01-23 14:58] VITALS: BP 102/67; PULSE 88
--- NOTE | 2020-01-23 15:21 | PN ---
Teaching Attending Note Name of Resident: Reed Townsend ATTENDING PHYSICIAN STATEMENT I saw and evaluated the patient. I reviewed the resident's note and discussed the case with the resident. I agree with the resident's findings and plan as documented. SUBJECTIVE: Feels better, POD 1. Tolerating oral intake. Passing flatus. No fever/chills. OBJECTIVE: Afebrile, Hemodynamically Stable. Last Vital Signs Temp Pulse Resp BP Pulse Ox 98.6 F 88 18 102/67 98 01/23/20 14:57 01/23/20 14:57 01/23/20 14:57 01/23/20 14:57 01/23/20 14:57 Heart - S1, S2, RRR Lungs - clear to auscultation Abdomen - Soft, trochar site clean. No guarding/rebound. Extremities - no edema, no calf tenderness. Neuro - AAO x 3. Tone/Power normal all extremities. Laboratory Results - last 24 hr 01/23/20 01/23/20 06:00 08:03 WBC 9.5 RBC 4.65 Hgb 13.0 Hct 38.7 MCV 83.3 MCH 27.9 MCHC 33.5 RDW 12.9 Plt Count 178 MPV 10.4 Sodium 144 Potassium 3.6 Chloride 111 H Carbon Dioxide 25 Anion Gap 8 BUN 7.3 Creatinine 0.8 Est GFR (CKD-EPI)AfAm 150.09 Est GFR (CKD-EPI)NonAf 129.50 Random Glucose 114 H Calcium 9.1 Phosphorus 4.1 Magnesium 2.2 Current Medications Generic Name Dose Route Start Last Admin Trade Name Freq PRN Reason Stop Dose Admin Acetaminophen 650 mg 01/22/20 13:30 01/22/20 17:43 Tylenol - PO 650 mg Q4H PRN Administration FEVER Enoxaparin Sodium 40 mg 01/23/20 10:00 01/23/20 09:34 Lovenox - SQ 40 mg DAILY MARCELINO Administration Famotidine/Sodium Chloride 20 mg in 50 mls @ 100 mls/hr 01/22/20 22:00 01/22 09:32 Pepcid 20 Mg Premixed Ivpb - IVPB 100 mls/hr BID MARCELINO Administration Piperacillin Sod/Tazobactam 50 mls @ 100 mls/hr 01/22/20 18:00 Sod 3.375 gm/ Dextrose IVPB Q8H-IV MARCELINO Protocol Piperacillin Sod/Tazobactam 50 mls @ 100 mls/hr 01/22/20 18:00 01/23/20 09:35 Sod 3.375 gm/ Dextrose IVPB 01/23/20 17:59 100 mls/hr Q8H-IV MARCELINO Administration Protocol Morphine Sulfate 8 mg 01/22/20 13:47 Morphine Injection - IVPB Q3H PRN PAIN LEVEL 7 - 10 Ondansetron HCl 4 mg 01/22/20 15:04 Zofran Injection IVPUSH Q6H PRN NAUSEA Oxycodone HCl 7.5 mg 01/22/20 13:30 01/23/20 12:50 Roxicodone - PO 7.5 mg Q4H PRN Administration PAIN LEVEL 4 - 6 Home Medications Medication Instructions Recorded Amox-Tr/K Cl [Augmentin - 875Mg 1 tab PO BID #10 tablet 01/23/20 Tablet] ASSESSMENT AND PLAN: 19 year old with no significant PMH, presents with acute onset abdominal pain, found to have acute appendicitis. Sepsis secondary to Acute Appendicitis POD 5 s/p lap appendectomy. Sepsis resolved. Fever/leukocytosis resolved. tolerating poral intake. Medically and Surgically cleared for discharge on 5 additional days of Abx therapy. Hypokalemia - repleted
--- NOTE | 2020-02-04 15:00 | PATH ---
Surgical Pathology Report Patient Name: MOHSEN ARIAS Med. Rec. #: [id number] /Age/Gender: 2000 (Age: 19) / M Account: [id number] Location: [address] [place] [address]/[facility] Taken: 01/22/2020 Received: 01/23/2020 Reported: 01/24/2020 Physicians: Bridget Robb M.D. Specimen(s) Received APPENDIX Clinical History Appendicitis Final Diagnosis APPENDIX, LAPAROSCOPIC APPENDECTOMY: ACUTE APPENDICITIS AND PERIAPPENDICITIS. Electronically Signed Denise Levine M.D. Gross Description Received in formalin, labeled "appendix," is a 5.8 cm. in length vermiform appendix with a stapled margin of resection and moderate attached fat. The serosa is kenney-hunter and smooth. Sectioning reveals a focally dilated lumen containing fecal material. The wall of the appendix averages 0.1 cm. in thickness. Offline Editor sections are submitted in one cassette. /01/23/2020 [facility]/01/23/2020
== END 2020-01-23 15:27 | disposition home or self-care (01) | DRG 710 ==
LOC: JER 08:37 → JERBED 13:07 → J6WEST-2 20:53 → J6S 01-22 19:04
PROVIDERS: ADMIT Internal Medicine
PROC: 3E1M38Z Irrigation of Peritoneal Cavity using Irrigating Substance, Percutaneous Approach (ICD-10-PCS; 2020-01-22)
PROC: 0DTJ4ZZ Resection of Appendix, Percutaneous Endoscopic Approach (ICD-10-PCS; principal; 2020-01-22 14:00)
DX: A41.9 Sepsis, unspecified organism (principal); K35.80 Unspecified acute appendicitis; E87.6 Hypokalemia
CPT/HCPCS: 36415; 74177-TC; 80048; 80053; 81003; 83690; 83735; 84100; 85025; 85027; 85610; 85730; 86850; 86900; 86901; 87086; 88304-TC; 93005; 93010; 94760; 99285-25; J0131; J1644; Q9967; U0003